=== PATIENT | male | born 2000 | race Caucasian/White ===

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

== ENCOUNTER 2022-01-31 09:09 | Emergency (ER) | payer MEDICAID, SELFPAY ==
[2022-01-31 10:15] VITALS: BP 145/84; PULSE 87; RESP 18; TEMP 37.1; O2SAT 98; BMI 37.4
[2022-01-31 10:30] LABS: UTC Influenza A Antigen Negative (Negative)
[2022-01-31 10:31] LABS: UTC Influenza B Antigen Negative (Negative)
--- NOTE | 2022-01-31 10:34 | HMH.EDUTC ---
[facility] [place] Disposition Clinical Impression: Sinusitis Qualifiers: Sinusitis location: unspecified location Chronicity: unspecified Qualified Code(s): J32.9 - Chronic sinusitis, unspecified Disposition: Home, Self-Care Condition on Discharge: Good Instructions: Sinusitis, DI for Sinusitis, Diarrhea Additional Instructions: Drink extra fluids with and between meals. If you have difficulty drinking, try very small amounts of water or suck on ice chips. ? Avoid fruit juices, as these do not replace minerals and can actually increase diarrhea. ? Children and adults can use sports drinks to replenish electrolytes. Younger children and infants should use products formulated for children, like oral rehydration solutions. ? Eat food in small amounts and let your stomach recover. ? Get lots of rest. You may feel tired or weak. ? No greasy or fried foods for the next 24-48 hours BRAT diet Bananas Rice Apples and [place] ? Make sure to drink plenty of liquids ? Return if needed ? Straight to ER if any life threatening symptoms ? Zofran as prescribed ? Follow up with family doctor in the next 48-72 hours if no improvement or any worsening of symptoms Take your medication as prescribed Return if needed Straight to ER if any life threatening symptoms Prescriptions: Amoxicillin/Potassium Clav [Amox-Clav 875-125 mg Tablet] 1 tab PO BID #14 tab Transmission Status: Pending to [facility] Ondansetron [Zofran 4mg ODT] 4 mg PO TIDP PRN #10 tab PRN Reason: Vomiting Transmission Status: Pending to [facility] Referrals: Provider,Referral, [Primary Care Provider] - As needed Time of Disposition: 10:44 Medical Decision Making - Balwinder Inquiry Pt receiving controlled substance: No Balwinder was queried for this patient: No Vital Signs: 01/31/22 10:15 Temperature 98.8 F Temperature Source Oral Pulse Rate [Left] 87 Respiratory Rate 18 Blood Pressure [Right Arm] 145/84 H Blood Pressure Mean [Right Arm] 104 02 Sat by Pulse Oximetry 98 - Lab Data Lab results reviewed: Yes: I reviewed the patient's lab results. Lab Results 01/31/22 10:15: Influenza Type A Ag Negative, Influenza Type B Ag Negative [facility] [place] HPI - General Stated complaint: vomiting, h/a, fever/chills Time Seen by Provider: 01/31/22 10:34 Mode of Arrival: Ambulatory Source of Information: Patient Limitations: No Limitations Description of Symptoms (Recalled from Triage Doc. by RN): pt c/o n/v, chills and body aches. HEENT Symptoms (Recalled from RN notes): No Resp Symptoms (Recalled from RN notes): No Skin Symptoms (Recalled from RN notes): No MS Symptoms (Recalled from RN notes): No Functional Status (Recalled from RN notes): wnl - History of Present Illness Provider Complaint: Patient states that he has been having sinus pain and pressure for over a week States that it has continued to get worse along with having body aches, chills, N/V/D States that he heard flu was going around so he came in - Related Data Previous Rx's Medication Instructions Recorded Amoxicillin/Potassium Clav 1 tab PO Q12H 7 Days #14 tab 08/14/19 [Augmentin 875-125 Tablet] Fluticasone Propionate [Flonase 2 spr NS DAILY #1 bottle 08/14/19 50mcg nasal spray 16gm] Promethazine/Dextromethorphan 5 ml PO Q46H PRN #60 ml 08/14/19 [Promethazine-Dm Syrup] predniSONE [Prednisone 5mg Tab 5 mg PO UD DOSE PK #21 pack 08/14/19 Dose-Pack] Amoxicillin/Potassium Clav 1 tab PO BID #14 tab 01/31/22 [Amox-Clav 875-125 mg Tablet] Ondansetron [Zofran 4mg ODT] 4 mg PO TIDP PRN #10 tab 01/31/22 Allergies Allergy/AdvReac Type Severity Reaction Status Date / Time methylphenidate Allergy Unknown Verified 11/15/17 17:04 [From RITALIN] sertraline [From ZOLOFT] Allergy Unknown Verified 11/15/17 17:03 - Worker's Comp Is this a Worker's Comp case?: No [facility] History - Hepatitis A Screen Drug use history?: No High risk sexual behaviors?: No History of s
[2022-01-31 10:57] VITALS: BP 145/84; PULSE 87; RESP 18; TEMP 37.1
== END 2022-01-31 10:58 | disposition home or self-care (01) ==
PROVIDERS: Emergency Provider Nurse Practitioner
DX: J32.9 Chronic sinusitis, unspecified (principal); F17.210 Nicotine dependence, cigarettes, uncomplicated
CPT/HCPCS: 87804; 99212; G0463

== ENCOUNTER 2022-02-22 13:28 | Emergency (ER) | payer SELFPAY ==
[2022-02-22 13:49] VITALS: BMI 28.7
--- NOTE | 2022-02-22 13:53 | XR_ITS ---
FINAL REPORT CLINICAL HISTORY: INJURY TO MIDDLE FINGER FINDINGS: LEFT HAND 3 views were obtained. There is no acute fracture or dislocation. The joint spaces are intact. There is no soft tissue abnormality. IMPRESSION: No acute bony abnormality. Reviewed, Interpreted and Dictated by Robinson Baker III, MD Transcribed by Goldie Morales Authenticated by Robinson Baker III, MD on 02/22/2022 04:10:41 PM [facility]
[2022-02-22 14:01] VITALS: BP 149/91; PULSE 76; RESP 16; TEMP 37; O2SAT 97; BMI 35.9
--- NOTE | 2022-02-22 14:06 | PC.NURSE ---
Notified rad of xray
--- NOTE | 2022-02-22 14:16 | HMH.EDUTC ---
[facility] Disposition Clinical Impression: Finger injury Qualifiers: Encounter type: initial encounter Laterality: left Qualified Code(s): S69.92XA - Unspecified injury of left wrist, hand and finger(s), initial encounter Disposition: Home, Self-Care Condition on Discharge: Good Instructions: How To Perform RICE (Rest, Ice, Compress, Elevate), DI for Abrasion Additional Instructions: Wear finger splint as directed Over the counter Neosporin on tip of finger as advised Return if needed Watch for signs of infection such as redness, drainage and swelling Straight to ER if any life threatening symptoms Prescriptions: cephALEXin [cephALEXin 500mg capsule*] 500 mg PO Q8H 7 Days #21 cap Transmission Status: Received by [facility] Referrals: Shane Arrington MD [Primary Care Provider] - As needed Time of Disposition: 14:49 Medical Decision Making - Balwinder Inquiry Pt receiving controlled substance: No Balwinder was queried for this patient: No Vital Signs: 02/22/22 14:01 02/22/22 15:21 Temperature 98.6 F 98.6 F Temperature Source Oral Pulse Rate 76 Pulse Rate [Right Radial] 76 Respiratory Rate 16 16 Blood Pressure 149/91 H Blood Pressure [Right Arm] 149/91 H Blood Pressure Mean [Right Arm] 110 Blood Pressure Source [Right Arm] Automatic Cuff Blood Pressure Position [Right Arm] Sitting 02 Sat by Pulse Oximetry 97 Oxygen Delivery Method Room Air Orders (Tests/Meds): ED MEDICATIONS Discontinued Medications Generic Name Dose Route Start Last Admin Trade Name Freq PRN Reason Stop Dose Admin Neomycin/Polymyxin/Bacitracin 1 each 02/22/22 15:19 02/22/22 15:21 Neosporin Ointment 0.9gm Udp TP 02/22/22 15:20 1 each ONCE ONE Administration ORDERS Category Date Time Status XR hand LT min 3V Stat Exams 02/22/22 13:53 Taken - Radiology Data #1 Image(s): Hand Image Reviewed: Yes I reviewed the patient's radiology image Preliminary Findings: No Fracture Seen [facility] HPI - General Stated complaint: AO 02/22 lt middle finger injury Time Seen by Provider: 02/22/22 14:17 Mode of Arrival: Ambulatory Source of Information: Patient Limitations: No Limitations Description of Symptoms (Recalled from Triage Doc. by RN): Pt advises he was at work when he injured his left middle finger. Advises he was working with an air blaster when his finger got snapped back and forward. Advises it is painful to move HEENT Symptoms (Recalled from RN notes): No Resp Symptoms (Recalled from RN notes): No Skin Symptoms (Recalled from RN notes): No MS Symptoms (Recalled from RN notes): Yes (Lt middle finger injury) Functional Status (Recalled from RN notes): n/a - History of Present Illness Provider Complaint: Patient states that he was using a blower when he went to turn it off and his left middle finger went into a small hole on the back of the blower and the motor caught the tip of the finger and bent his finger back and forth and now having pain when he tries to move it and small puncture on the tip of his finger - Related Data Previous Rx's Medication Instructions Recorded Amoxicillin/Potassium Clav 1 tab PO Q12H 7 Days #14 tab 08/14/19 [Augmentin 875-125 Tablet] Fluticasone Propionate [Flonase 2 spr NS DAILY #1 bottle 08/14/19 50mcg nasal spray 16gm] Promethazine/Dextromethorphan 5 ml PO Q46H PRN #60 ml 08/14/19 [Promethazine-Dm Syrup] predniSONE [Prednisone 5mg Tab 5 mg PO UD DOSE PK #21 pack 08/14/19 Dose-Pack] Amoxicillin/Potassium Clav 1 tab PO BID #14 tab 01/31/22 [Amox-Clav 875-125 mg Tablet] Ondansetron [Zofran 4mg ODT] 4 mg PO TIDP PRN #10 tab 01/31/22 cephALEXin [cephALEXin 500mg 500 mg PO Q8H 7 Days #21 cap 02/22/22 capsule*] Allergies Allergy/AdvReac Type Severity Reaction Status Date / Time methylphenidate Allergy Unknown Verified 11/15/17 17:04 [From RITALIN] sertraline [From ZOLOFT] Allergy Unknown Verified 11/15/17 17:03 - Worker's
[2022-02-22 15:21] VITALS: BP 149/91; PULSE 76; RESP 16; TEMP 37; O2SAT 97
== END 2022-02-22 15:25 | disposition home or self-care (01) ==
PROVIDERS: Emergency Provider Nurse Practitioner; PCP Emergency Medicine
DX: S69.92XA Unspecified injury of left wrist, hand and finger(s), initial encounter (principal); W22.8XXA Striking against or struck by other objects, initial encounter; Y92.89 Other specified places as the place of occurrence of the external cause; F17.210 Nicotine dependence, cigarettes, uncomplicated
CPT/HCPCS: 73130; 99212; G0463

== ENCOUNTER 2022-12-22 20:51 | Emergency (ER) | payer SELFPAY ==
[2022-12-22 20:52] VITALS: BP 155/89; PULSE 104; RESP 16; TEMP 36.6; O2SAT 99; BMI 35.9
[2022-12-22 21:19] LABS: Coronavirus 19, PCR Not Detected (NotDetected); Influenza A, PCR Not Detected (NotDetected); Influenza B, PCR Not Detected (NotDetected)
--- NOTE | 2022-12-22 21:21 | CT_ITS ---
PROCEDURE INFORMATION: Exam: CT Abdomen And Pelvis With Contrast Exam date and time: 12/22/2022 10:03 PM Age: 22 years old Clinical indication: Vomiting; Additional info: Abd. Pain with vomiting TECHNIQUE: Imaging protocol: Computed tomography of the abdomen and pelvis with contrast. Radiation optimization: All CT scans at this facility use at least one of these dose optimization techniques: automated exposure control; mA and/or kV adjustment per patient size (includes targeted exams where dose is matched to clinical indication); or iterative reconstruction. Contrast material: ISOVUE; Contrast volume: 75 ml; Contrast route: IV; Other protocol: This patient has received 0 known CTs and 0 known cardiac nuclear medicine studies in the 12 months prior to the current study. COMPARISON: ABDPELWW CT abdomen pelvis wo/w con 11/15/2017 6:03 PM FINDINGS: Liver: Unremarkable. Gallbladder and bile ducts: Unremarkable. Pancreas: Unremarkable. Spleen: Unremarkable. Adrenal glands: Unremarkable. Kidneys and ureters: Unremarkable. Stomach and bowel: Unremarkable. Appendix: Appendix is visualized and is normal. Intraperitoneal space: No free fluid. No pneumoperitoneum. Vasculature: Unremarkable. Lymph nodes: Unremarkable. Urinary bladder: Bladder is decompressed, limiting evaluation. Reproductive: Unremarkable. Bones/joints: No acute osseous abnormality. Soft tissues: Unremarkable. IMPRESSION: No acute findings in the abdomen or pelvis.
[2022-12-22 21:37] LABS: Strep Scrn Group A (Rapid) Negative (Negative)
[2022-12-22 21:38] LABS: Basophils # 0.1 K/mm3 (0-0.2); Basophils % 0.5 % (0.1-2.0); Eosinophils # 0.1 K/mm3 (0.0-0.4); Eosinophils % 0.4 % (0.1-12.0); Hemoglobin 17.2 g/dL (14.1-18.0); Lymphocytes # 0.8 K/mm3 (0.7-4.5); Mean Corpuscular HGB Conc 34.4 g/dL (31.8-35.4); Mean Corpuscular Hemoglobin 30.1 pg (27.0-31.2); Mean Corpuscular Volume 87.7 fl (80-94); Mean Platelet Volume 9.9 fl (7.4-10.4); Monocytes # 0.7 K/mm3 (0.1-1.0); Monocytes % 3.4 % (1.7-9.3); Neutrophils # 19.3 K/mm3 (1.8-7.8); Neutrophils % 91.7 % (37.0-80.0); Platelet Count 243 K/mm3 (142-424); Red Blood Count 5.69 M/mm3 (4.60-6.20); White Blood Count 21.1 K/mm3 (4.8-10.8)
[2022-12-22 21:40] LABS: Alanine Aminotransferase 27 U/L (12-78); Albumin Level 5.4 g/dl (3.5-5.0); Albumin/Globulin Ratio 1.7 (1.1-1.8); Alkaline Phosphatase 102 U/L (38-126); Amylase 79 U/L (30-110); Anion Gap 15.7 mEq/L (5-15); Aspartate Amino Transferase 27 U/L (17-59); Bilirubin,Total 1.5 mg/dl (0.2-1.3); Blood Urea Nitrogen 19 mg/dl (9-20); Calcium 9.8 mg/dl (8.4-10.2); Carbon Dioxide 22 mmol/L (22.0-30.0); Chloride 107 mmol/L (98-107); Creatinine Clearance Estimated 206 mL/min (50-200); Estimated Glomerular Filt Rate 106 ml/min (>60); GFR (African American) 128 ML/MIN (>60); Globulin 3.1 g/dL (1.3-3.2); Glucose 137 mg/dl (74-100); Lipase 30 U/L (23-300); Potassium 3.7 mmoL/L (3.5-5.1); Sodium 141 mmol/L (136-145); Total Protein,Serum 8.5 g/dl (6.3-8.2)
[2022-12-22 22:04] LABS: MANUAL DIFFERENTIAL MANUAL DIFFERENTIAL (MANUAL DIFF)
[2022-12-22 22:16] LABS: Lymphocytes % 5 % (10-50); Monocytes % 1 % (2-9); Neutrophils % 91 % (42-76); Platelet Estimate Normal; RBC Morphology Normal; Total Cells Counted 100
--- NOTE | 2022-12-22 22:36 | HMH.EDABDPAI ---
Discharge Plan Disposition Patient Disposition: Home, Self-Care Prescriptions Prescriptions: New ondansetron HCl 4 mg Tablet 4 mg PO Q8H PRN (Reason: Nausea) Qty: 20 0RF No Action promethazine-DM 120 ML syrup 5 ml PO Q46H PRN (Reason: Cough) Qty: 60 0RF prednisone 5 MG tablets,dose pack 5 mg PO UD DOSE PK Qty: 21 0RF fluticasone propionate 120 SPR/BOT bottle 2 spr NS DAILY Qty: 1 0RF Rx Instructions: each nostril daily amoxicillin-pot clavulanate 1 EACH tablet 1 tab PO Q12H 7 Days Qty: 14 0RF ondansetron 4 MG tablet,disintegrating 4 mg PO TIDP PRN (Reason: Vomiting) Qty: 10 0RF amoxicillin-pot clavulanate 1 EACH tablet 1 tab PO BID Qty: 14 0RF cephalexin 500 MG capsule 500 mg PO Q8H 7 Days Qty: 21 0RF Referrals Follow up/Referrals: Provider,Referral, MD [Primary Care Provider] - See instructions Clinical Impressions Clinical Impression: Gastroenteritis, Leukocytosis (leucocytosis) Instructions Patient Instructions: DI for Vomiting -- Adult Discharge ED Provider: Murphy (ED)Shane Abdominal Pain HPI General Chief Complaint: Abdominal Pain Stated Complaint: CHILLS,vOMITING,aBD pAIN bODY ACHES Time Seen by Provider: 12/22/22 21:00 Mode of Arrival: Ambulatory Source of Information: Patient and Medical Record Limitations: No Limitations Description of Symptoms (Recalled from ER Triage Doc. by RN): pt to the ED with nausea, vomiting and generalized abd. pain accompanied by cough, congestion, sore throat and bodyaches/ chills since yesterday History of Present Illness HPI narrative: achey with vomiting and diarrhea w/o rash and exposure to similiar illness complaint: abdominal pain Onset (ago): hour(s) Consistency: intermittent Severity: moderate Associated symptoms: denies other symptoms Related Data Previous Rx's Medication Instructions Recorded amoxicillin 875 mg-potassium 1 tab PO Q12H 7 days #14 tabs 08/14/19 clavulanate 125 mg tablet fluticasone propionate 50 2 spr NS DAILY ##1 08/14/19 mcg/actuation nasal spray,suspension prednisone 5 mg tablets in a dose 5 mg PO UD DOSE PK ##21 08/14/19 pack promethazine-DM 6.25 mg-15 mg/5 mL 5 ml PO Q46H PRN Cough #60 mL 08/14/19 oral syrup amoxicillin 875 mg-potassium 1 tab PO BID #14 tabs 01/31/22 clavulanate 125 mg tablet ondansetron 4 mg disintegrating 4 mg PO TIDP PRN Vomiting #10 tabs 01/31/22 tablet cephalexin 500 mg capsule 500 mg PO Q8H 7 days #21 caps 02/22/22 ondansetron HCl 4 mg tablet 4 mg PO Q8H PRN Nausea #20 tabs 12/22/22 Allergies Allergy/AdvReac Type Severity Reaction Status Date / Time methylphenidate Allergy Unknown Verified 11/15/17 17:04 [From RITALIN] sertraline [From ZOLOFT] Allergy Unknown Verified 11/15/17 17:03 [facility] Disclaimer: The information contained in this section may have been updated after the patient was seen, as this information can be updated by other users. Social History Smoking Status: Current every day smoker tobacco type: cigarettes packs per day: 1 alcohol intake: never current occupational status: other Travel in the last 8 weeks: None ROS Obtained: Yes All systems reviewed & no additional complaints except as documented Physical Exam General General appearance: alert Head Head exam: normocephalic Eye Eye exam: Present PERRL and EOMI; Absent jaundice ENT ENT exam: Present mucous membranes moist Neck Neck exam: Present trachea midline Respiratory Respiratory exam: Present normal lung sounds bilaterally; Absent respiratory distress Cardiovascular Cardiovascular exam: Present regular rate Abdominal Exam Abdominal exam: Present soft Extremities Exam Extremities exam: Present full ROM Neurological Exam Neurological exam: Present alert, oriented X3 and CN II-XII intact; Absent motor sensory deficit Psychiatric Psychiatric exam: Present normal affect Skin Skin exam: Absent rash Medical Decision Making
[2022-12-22 23:16] VITALS: BP 141/79; PULSE 81; RESP 17; TEMP 36.6; O2SAT 99
== END 2022-12-22 23:18 | disposition home or self-care (01) ==
PROVIDERS: Emergency Provider Emergency Medicine
DX: K52.9 Noninfective gastroenteritis and colitis, unspecified (principal); D72.829 Elevated white blood cell count, unspecified; F17.210 Nicotine dependence, cigarettes, uncomplicated; Z20.822 Contact with and (suspected) exposure to COVID-19
CPT/HCPCS: 74177; 80053; 82150; 83690; 85007; 85025; 87430; 96361; 96374; 96375; 99285; C9803; J2405; Q9967; U0003; U0005

== ENCOUNTER 2023-04-09 | Emergency (ER) | payer SELFPAY ==
[2023-04-09 00:07] VITALS: BP 122/88; PULSE 65; RESP 16; TEMP 36.6; O2SAT 98; BMI 29.5
--- NOTE | 2023-04-09 00:16 | HMH.EDSKAF ---
Discharge Plan Disposition Patient Disposition: Home, Self-Care Chief Complaint: Skin/Abscess/Foreign Body Prescriptions Prescriptions: No Action No Known Home Medications Activity Restrictions/Add. Instructions Additional Instructions/Restrictions: sutures out 7-8 days Clinical Impressions Clinical Impression: Laceration of finger Instructions Patient Instructions: DI for Laceration Repair -- Finger Discharge ED Provider: Murphy (ED)Shane Skin/Abscess/FB HPI General Chief complaint: Skin/Abscess/Foreign Body Stated complaint: AO 04/09/23 2330 laceration left pinky Time Seen by Provider: 04/09/23 00:16 Mode of Arrival: Ambulatory Source of Information: Patient, Spouse and Medical Record Limitations: No Limitations Description of Symptoms (Recalled from ER Triage Doc. by RN): pt states about 30 minutes ago he cut himself with a fishing knife. pt presents with a small lac to the hamlin side of his PIP joint on his pinky of the L hand. pt states after he felt whoozy, but does not at this time. pt needs a tetnus vaccine at this time. History of Present Illness HPI narrative: laceration to lt fifth finger with knife tonight complaint: laceration Onset (ago): hour(s) Tetanus up to date: no Location: L hand Severity: moderate Associated symptoms: denies other symptoms Related Data Home Medications Medication Instructions Recorded Confirmed No Known Home Medications 04/09/23 04/09/23 Allergies Allergy/AdvReac Type Severity Reaction Status Date / Time methylphenidate Allergy Unknown Verified 04/09/23 00:10 [From RITALIN] sertraline [From ZOLOFT] Allergy Unknown Verified 04/09/23 00:10 [facility] Disclaimer: The information contained in this section may have been updated after the patient was seen, as this information can be updated by other users. Social History Smoking Status: Current every day smoker tobacco type: cigarettes packs per day: 1 alcohol intake: never current occupational status: other Travel in the last 8 weeks: None ROS Obtained: Yes All systems reviewed & no additional complaints except as documented Physical Exam General General appearance: alert Head Head exam: normocephalic Eye Eye exam: Present PERRL and EOMI ENT ENT exam: Present mucous membranes moist Neck Neck exam: Present trachea midline Respiratory Respiratory exam: Absent respiratory distress Cardiovascular Cardiovascular exam: Present regular rate Extremities Exam Extremities exam: Present other (0.5 cm lac to lt fifth finger on volar surface at pip jt - no fb/neurovascular ok and tendon ok ) Neurological Exam Neurological exam: Present alert and CN II-XII intact Psychiatric Psychiatric exam: Present normal affect Skin Skin exam: Absent rash Medical Decision Making Medical Records Medical records reviewed: Yes I reviewed the patient's medical records. Balwinder Inquiry Pt receiving controlled substance: No Vital Signs: 04/09/23 00:07 Temperature 97.8 F Temperature Source Oral Pulse Rate [Left] 65 Respiratory Rate 16 Blood Pressure [Right Arm] 122/88 Blood Pressure Mean [Right Arm] 99 Blood Pressure Source [Right Arm] Automatic Cuff Blood Pressure Position [Right Arm] Sitting 02 Sat by Pulse Oximetry 98 Lab Data Lab results reviewed: Yes I reviewed the patient's lab results. Orders (Tests/Meds): ED MEDICATIONS Discontinued Medications Generic Name Dose Route Start Last Admin Trade Name Freq PRN Reason Stop Dose Admin Lidocaine HCl 10 ml 04/09/23 00:18 04/09/23 00:22 Lidocaine 1% 10ml Mdv SQ 04/09/23 00:19 10 ml ONCE ONE Administration Tetanus/Reduced Diphtheria/Acell Pertussis 0.5 ml 04/09/23 00:11 04/09/23 00:14 Tet/Diphth/Pert-Adult 0.5ml Syringe IM 04/09/23 00:12 0.5 ml .ONCE ONE Administration Medical Decision Narrative: lac lt fifth finger - repaired - and sutures out 7-8 days Procedures Laceration L
[2023-04-09 00:48] VITALS: BP 119/85; PULSE 66; RESP 16; TEMP 36.6
== END 2023-04-09 00:50 | disposition home or self-care (01) ==
PROVIDERS: Emergency Provider Emergency Medicine
DX: S61.217A Laceration without foreign body of left little finger without damage to nail, initial encounter (principal); F17.210 Nicotine dependence, cigarettes, uncomplicated; W26.0XXA Contact with knife, initial encounter; Z23 Encounter for immunization
CPT/HCPCS: 12041; 64450; 90471; 90715; 96372; 99284

== ENCOUNTER 2023-10-06 09:07 | Emergency (ER) | payer SELFPAY ==
[2023-10-06 09:40] VITALS: BP 139/95; PULSE 131; RESP 18; TEMP 38; O2SAT 98; BMI 31.5
[2023-10-06 10:13] LABS: Adenovirus,PCR Not Detected (NotDetected); Coronavirus 229E Not Detected (NotDetected); Coronavirus NL63 Not Detected (NotDetected); Coronavirus OC43 Not Detected (NotDetected); Coronovirus HKU1,PCR Not Detected (NotDetected); Human Metapneumovirus Not Detected (NotDetected); Influenza A, PCR Not Detected (NotDetected); Influenza AH1, 2009 Not Detected (NotDetected); Influenza AH1, PCR Not Detected (NotDetected); Influenza AH3,PCR Not Detected (NotDetected); Influenza B, PCR Not Detected (NotDetected); Parainfluenza 1, PCR Not Detected (NotDetected); Parainfluenza 2, PCR Not Detected (NotDetected); Parainfluenza 3, PCR Not Detected (NotDetected); Parainfluenza 4, PCR Not Detected (NotDetected); Respiratory Syncytial Virus Not Detected (NotDetected); Rhinovirus/Enterovirus Not Detected (NotDetected)
--- NOTE | 2023-10-06 10:23 | EXP.UTC ---
Discharge Plan Disposition Patient Disposition: Home, Self-Care Condition: Good Prescriptions Prescriptions: New prednisone [prednisone] 20 mg tablet 20 mg PO BID Qty: 10 0RF Referrals Follow up/Referrals: Provider,Referral, MD [Primary Care Provider] - See instructions Activity Restrictions/Add. Instructions Additional Instructions/Restrictions: covid swab was sent to lab, call tomorrow for results. self isolate until test results are known to be negative No sign of a bacterial infection. Likely viral. Viruses can take 7-14 days to run their course. Nasal saline and bulb syringe or nose Antonina to remove nasal drainage to help with nasal congestion. Hard to eat, drink, sleep with nasal congestion so important to keep this cleaned out. Monitor temp. Tylenol or Motrin as needed for pain or fever Encourage fluids, water, Gatorade, Powerade, Pedialyte if infant/toddler/child Warm salt water gargles Warm fluids Sore throat lozenges Sleep elevated Humidifier/vaporizer Follow-up immediately for new or worsening symptoms or no noticeable improvement over the next 48-72 hours. Clinical Impressions Clinical Impression: Exposure to COVID-19 virus Upper respiratory infection Qualifiers: URI type: unspecified viral URI Qualified Code(s): J06.9 - Acute upper respiratory infection, unspecified Instructions Patient Instructions: DI for Viral Upper Respiratory Infection -- Adult, DI for COVID-19 (Suspected or Confirmed ) Discharge ED Provider: Pamella ([facility])John [facility] [place] HPI General Stated complaint: vomiting,body aches,diarrhea, headache,cough Mode of Arrival: Ambulatory Source of Information: Patient Limitations: No Limitations Time Seen by Provider: 10/06/23 10:23 Description of Symptoms (Recalled from Triage Doc. by RN): Was exposed to covid 3 days ago. Pt has symptoms vomiting, diarrhea, body aches, [place]ICK, and coughing. HEENT Symptoms (Recalled from RN notes): Yes Resp Symptoms (Recalled from RN notes): No Skin Symptoms (Recalled from RN notes): No MS Symptoms (Recalled from RN notes): No Functional Status (Recalled from RN notes): n/a History of Present Illness Provider Complaint: 23 yr old male presents for vomiting, diarrhea, body aches, CH[place]WICK, and coughing. was exposed to covid 3 days ago Related Data Previous Rx's Medication Instructions Recorded prednisone 20 mg tablet 20 mg PO BID #10 tabs 12/02/23 Allergies Allergy/AdvReac Type Severity Reaction Status Date / Time methylphenidate Allergy Unknown Verified 04/09/23 00:10 [From RITALIN] sertraline [From ZOLOFT] Allergy Unknown Verified 04/09/23 00:10 Worker's Comp Is this a Worker's Comp case?: No [facility] Disclaimer: The information contained in this section may have been updated after the patient was seen, as this information can be updated by other users. Social History , [employer]) Smoking Status: Current every day smoker tobacco type: cigarettes packs per day: 1 alcohol intake: never current occupational status: other Travel in the last 8 weeks: None ROS Obtained: Yes All systems reviewed & no additional complaints except as documented Constitutional Constitutional: Reports system reviewed and no additional complaints, except as documented, Reports as per HPI, Reports fever(s) and Reports headache(s) Eyes Eyes: Reports system reviewed and no additional complaints, except as documented ENT Ears, Nose, Mouth, and Throat: Reports system reviewed and no additional complaints, except as documented, Reports as per HPI, Reports headache(s), Reports nasal congestion, Reports nasal discharge and Reports sinus pressure Cardiovascular Cardiovascular: Reports system reviewed and no additional complaints, except as documented Respiratory Respiratory: Reports system reviewed and no additional complaints, except as documented, Reports as per HPI and Reports cough Gastrointestinal Gastrointestinga
[2023-10-06 10:40] VITALS: BP 139/95; PULSE 131; RESP 18; TEMP 38; O2SAT 98
[2023-10-06 11:38] LABS: Coronavirus 19, PCR Detected (NotDetected)
== END 2023-10-06 10:40 | disposition home or self-care (01) ==
PROVIDERS: Emergency Provider Nurse Practitioner Family
DX: U07.1 COVID-19 (principal); R51.9 Headache, unspecified; R11.2 Nausea with vomiting, unspecified; R19.7 Diarrhea, unspecified; R05.9 Cough, unspecified; M79.18 Myalgia, other site; F17.210 Nicotine dependence, cigarettes, uncomplicated; R50.9 Fever, unspecified
CPT/HCPCS: 87632; 87635; 99212; 99214; G0463